=== PATIENT | female | born 1990 | race American Indian/Alaskan Native ===

== ENCOUNTER 2020-08-14 16:44 | Emergency (ER) | payer MEDICAID ==
[2020-08-14 16:56] VITALS: BP 149/86
[2020-08-14 19:07] LABS: Bacteria,Urine 2+ /HPF (Negative); Bilirubin,Urine NEG (Negative); Blood,Urine LG (Negative); Color,Urine Yellow (Yellow); Hyaline Casts,Urine 1 /LPF; Mucus,Urine 1+ /HPF
--- NOTE | 2020-08-14 19:08 | Ultrasound Report ---
OB Ultrasound HISTORY: slip and fall, , vaginal bleeding. TECHNIQUE: Grayscale and color imaging performed. COMPARISON: None FINDINGS: Transabdominal and endovaginal technique performed. Uterus measures 11.0 x 5.3 x 5.7 cm with an intrauterine gestational sac and pole present. [place] n-rump length is 7 mm which corresponds with an EGA of 6 weeks and 4 days. Heart rate is 115 bpm. Both ovaries appear normal. No significant pelvic free fluid. IMPRESSION: Single viable intrauterine gestation as above with nothing acute. Signer Name: Alejandro Marie MD Signed: 08/14/2020 7:03 PM Workstation Name: [id number]
--- NOTE | 2020-08-14 19:08 | Ultrasound Report ---
OB Ultrasound HISTORY: slip and fall, , vaginal bleeding. TECHNIQUE: Grayscale and color imaging performed. COMPARISON: None FINDINGS: Transabdominal and endovaginal technique performed. Uterus measures 11.0 x 5.3 x 5.7 cm with an intrauterine gestational sac and pole present. [place] n-rump length is 7 mm which corresponds with an EGA of 6 weeks and 4 days. Heart rate is 115 bpm. Both ovaries appear normal. No significant pelvic free fluid. IMPRESSION: Single viable intrauterine gestation as above with nothing acute. Signer Name: Alejandro Marie MD Signed: 08/14/2020 7:03 PM Workstation Name: [id number]
[2020-08-14 19:09] LABS: Basophils % (Auto) 0.4 % (0.0-1.8); Eosinophils % (Auto) 0.2 % (0.0-4.3); Hematocrit 39.8 % (30.3-42.9); Hemoglobin 13.6 gm/dl (10.1-14.3); Lymphocytes # (Auto) 2.5 K/mm3 (1.2-5.4); Lymphocytes % (Auto) 23.5 % (13.4-35.0); Mean Corpuscular HGB Conc 34 % (30-34); Mean Corpuscular Volume 93 fl (79-97); Monocytes # (Auto) 0.6 K/mm3 (0.0-0.8); Monocytes % (Auto) 5.9 % (0.0-7.3); Platelet Count 230 K/mm3 (140-440); Red Blood Count 4.27 M/mm3 (3.65-5.03); Red Cell Distribution Width 13.4 % (13.2-15.2)
[2020-08-14 19:27] LABS: Alanine Aminotransferase 12 units/L (7-56); Albumin 4.3 g/dL (3.9-5); Blood Urea Nitrogen 7 mg/dL (7-17); Calcium 9.5 mg/dL (8.4-10.2); Hemolysis Index 12
[2020-08-14 19:34] LABS: BUN/Creatinine Ratio 12
--- NOTE | 2020-08-14 20:22 | Emergency Department Report ---
ED General Adult HPI - General Chief complaint: Vaginal Bleeding Stated complaint: 7WKS PREG/BLEEDING/FALL Time Seen by Provider: 08/14/20 17:02 Source: patient Mode of arrival: Ambulatory Limitations: No Limitations - History of Present Illness Initial comments: Patient is a 29-year-old female presents emergency room with complaints of slip and fall that occurred just prior to arrival. She states that there was water on her kitchen floor and she accidentally slipped. She states since then she has noticed light vaginal bleeding whenever she wipes. She states that she landed on her bottom. She denies any abdominal pain, buttock pain, back pain, neck pain, upper extremity or lower extremity pain, loss of consciousness, hitting her head, vomiting, vision changes, numbness, weakness. She states that she is not having any pain anywhere. She states that she is currently 7 weeks . She states her MEDICAL RECORD TRANSCRIBER is [employer] [employer]. Last menstrual cycle June 27, 2020. No past medical history. No allergies medications. /P: 1/A: 2 (both abortions). - Related Data Allergies Allergy/AdvReac Type Severity Reaction Status Date / Time No Known Allergies Allergy Verified 08/14/20 16:52 ED Review of Systems ROS: Stated complaint: 7WKS PREG/BLEEDING/FALL Other details as noted in HPI Comment: All other systems reviewed and negative ED Past Medical Hx - Past Medical History Previous Medical History?: No - Surgical History Past Surgical History?: No - Social History Smoking Status: Never Smoker Substance Use Type: None ED Physical Exam - General Limitations: No Limitations General appearance: alert, in no apparent distress - Head Head exam: Present: atraumatic, normocephalic - Eye Eye exam: Present: normal appearance - ENT ENT exam: Present: mucous membranes moist - Respiratory Respiratory exam: Present: normal lung sounds bilaterally. Absent: respiratory distress, wheezes, rales, rhonchi, stridor, chest wall tenderness, accessory muscle use, decreased breath sounds, prolonged expiratory - Cardiovascular Cardiovascular Exam: Present: regular rate, normal rhythm, normal heart sounds. Absent: systolic murmur, diastolic murmur, rubs, gallop - GI/Abdominal GI/Abdominal exam: Present: soft, normal bowel sounds. Absent: distended, tenderness, guarding, rebound, rigid - Neurological Exam Neurological exam: Present: alert, oriented X3, CN II-XII intact, normal gait. Absent: motor sensory deficit - Psychiatric Psychiatric exam: Present: normal affect, normal mood - Skin Skin exam: Present: warm, dry, intact ED Course Vital Signs 08/14/20 16:53 Temperature 98.3 F Pulse Rate 117 H Respiratory 22 Rate Blood Pressure 149/86 O2 Sat by Pulse 99 Oximetry ED Medical Decision Making - Lab Data Result diagrams: 08/14/20 18:54 08/14/20 18:54 Lab Results 08/14/20 08/14/20 08/14/20 Range/Units 18:54 18:54 18:54 WBC 10.4 (4.5-11.0) K/mm3 RBC 4.27 (3.65-5.03) M/mm3 Hgb 13.6 (10.1-14.3) gm/dl Hct 39.8 (30.3-42.9) % MCV 93 (79-97) fl MCH 32 (28-32) pg MCHC 34 (30-34) % RDW 13.4 (13.2-15.2) % Plt Count 230 (140-440) K/mm3 Lymph % (Auto) 23.5 (13.4-35.0) % Floyd % (Auto) 5.9 (0.0-7.3) % Eos % (Auto) 0.2 (0.0-4.3) % Baso % (Auto) 0.4 (0.0-1.8) % Lymph # (Auto) 2.5 (1.2-5.4) K/mm3 [place] # (Auto) 0.6 (0.0-0.8) K/mm3 Eos # (Auto) 0.0 (0.0-0.4) K/mm3 Baso # (Auto) 0.0 (0.0-0.1) K/mm3 Seg Neutrophils % 70.0 (40.0-70.0) % Seg Neutrophils # 7.3 (1.8-7.7) K/mm3 Sodium 136 L (137-145) mmol/L Potassium 3.5 L (3.6-5.0) mmol/L Chloride 99.3 (98-107) mmol/L Carbon Dioxide 22 (22-30) mmol/L Anion Gap 18 mmol/L BUN 7 (7-17) mg/dL Creatinine 0.6 (0.6-1.2) mg/dL Estimated GFR > 60 ml/min BUN/Creatinine Ratio 12 % Glucose 97 (65-100) mg/dL Calcium 9.5 (8.4-10.2) mg/dL Total Bilirubin 0.30 (0.1-1.2) mg/dL AST 16 (5-40) units/L ALT 12 (7-56) units/L Alkaline Phosphatase 42 (35-129) units/L Total Protein 7.2 (6.3-8.2) g/dL Albumin 4.3 (3.9-5) g/dL Albumin/Globulin Ratio 1.5 % HCG, Quant 79037 H (0-4) mIU/mL Urine Color (Yellow) Urine Turbidity (Clear) Urine pH (5.0-7.0) Ur Specific [place] (1.003-1.030) Urine Protein (Negative) mg/dL Urine Glucose (UA) (Negative) mg/dL Urine Ketones (Negative) mg/dL Urine Blood (Negative) Urine Nitrite (Negative) Urine Bilirubin (Negative) Urine Urobilinogen (<2.0) mg/dL Ur Leukocyte Esterase (Negative) Urine WBC (Auto) (0.0-6.0) /HPF Urine RBC (Auto) (0.0-6.0) /HPF U Epithel Cells (Auto) (0-13.0) /HPF Urine Bacteria (Auto) (Negative) /HPF Hyaline Casts /LPF Urine Mucus /HPF Blood Type 08/14/20 08/14/20 Range/Units 18:54 Unknown WBC (4.5-11.0) K/mm3 RBC (3.65-5.03) M/mm3 Hgb (10.1-14.3) gm/dl Hct (30.3-42.9) % MCV (79-97) fl MCH (28-32) pg MCHC (30-34) % RDW (13.2-15.2) % Plt Count (140-440) K/mm3 Lymph % (Auto) (13.4-35.0) % Floyd % (Auto) (0.0-7.3) % Eos % (Auto) (0.0-4.3) % Baso % (Auto) (0.0-1.8) % Lymph # (Auto) (1.2-5.4) K/mm3 Floyd # (Auto) (0.0-0.8) K/mm3 Eos # (Auto) (0.0-0.4) K/mm3 Baso # (Auto) (0.0-0.1) K/mm3 Seg Neutrophils % (40.0-70.0) % Seg Neutrophils # (1.8-7.7) K/mm3 Sodium (137-145) mmol/L Potassium (3.6-5.0) mmol/L Chloride (98-107) mmol/L Carbon Dioxide (22-30) mmol/L Anion Gap mmol/L BUN (7-17) mg/dL Creatinine (0.6-1.2) mg/dL Estimated GFR ml/min BUN/Creatinine Ratio % Glucose (65-100) mg/dL Calcium (8.4-10.2) mg/dL Total Bilirubin (0.1-1.2) mg/dL AST (5-40) units/L ALT (7-56) units/L Alkaline Phosphatase (35-129) units/L Total Protein (6.3-8.2) g/dL Albumin (3.9-5) g/dL Albumin/Globulin Ratio % HCG, Quant (0-4) mIU/mL Urine Color Yellow (Yellow) Urine Turbidity Cloudy (Clear) Urine pH 6.0 (5.0-7.0) Ur Specific [place] 1.025 (1.003-1.030) Urine Protein 100 mg/dl (Negative) mg/dL Urine Glucose (UA) Neg (Negative) mg/dL Urine Ketones Neg (Negative) mg/dL Urine Blood Lg (Negative) Urine Nitrite Neg (Negative) Urine Bilirubin Neg (Negative) Urine Urobilinogen 2.0 (<2.0) mg/dL Ur Leukocyte Esterase Neg (Negative) Urine WBC (Auto) 7.0 H (0.0-6.0) /HPF Urine RBC (Auto) 3.0 (0.0-6.0) /HPF U Epithel Cells (Auto) 57.0 H (0-13.0) /HPF Urine Bacteria (Auto) 2+ (Negative) /HPF Hyaline Casts 1 /LPF Urine Mucus 1+ /HPF Blood Type A POSITIVE - Radiology Data Radiology results: report reviewed Ordering Physician: PETRONA CHANG Date of Service: 08/14/20 Procedure(s): US OB transvaginal Accession Number(s): [id number] cc: PETRONA CHANG OB Ultrasound HISTORY: slip and fall, , vaginal bleeding. TECHNIQUE: Grayscale and color imaging performed. COMPARISON: None FINDINGS: Transabdominal and endovaginal technique performed. Uterus measures 11.0 x 5.3 x 5.7 cm with an intrauterine gestational sac and pole present. [place]-rump length is 7 mm which corresponds with an EGA of 6 weeks and 4 days. Heart rate is 115 bpm. Both ovaries appear normal. No significant pelvic free fluid. IMPRESSION: Single viable intrauterine gestation as above with nothing acute. Signer Name: Alejandro Marie MD Signed: 08/14/2020 7:03 PM Workstation Name: [id number] Transcribed By: ION Dictated By: Alejandro Marie MD Electronically Authenticated By: Alejandro Marie MD Signed Date/Time: 08/14/201902 DD/ 01 TD/TT: - Medical Decision Making Patient is a 29-year-old female presents emergency room with complaints of slip and fall that occurred just prior to arrival. She states that there was water on her kitchen floor and she accidentally slipped. She states since then she has noticed light vaginal bleeding whenever she wipes. She states that she landed on her bottom. She denies any abdominal pain, buttock pain, back pain, neck pain, upper extremity or lower extremity pain, loss of consciousness, hitting her head, vomiting, vision changes, numbness, weakness. She states that she is not having any pain anywhere. She states that she is currently 7 weeks . She states her MEDICAL RECORD TRANSCRIBER is [employer]. Last menstrual cycle June 27, 2020. No past medical history. No allergies medications. /P: 1/A: 2 (both abortions). initial vitals with mild tachycardia, patient was tearful initially and she was concerned about her baby given the fall, she is not really having any pain but she just wants to make sure that the baby is okay, repeat heart rate in exam room is 86 bpm, otherwise vitals are stable. Labs are stable. UA shows many epithelial cells, this is likely due to contamination, patient is not having uri nary symptoms, do not suspect UTI. OB ultrasound IMPRESSION: Single viable intrauterine gestation as above with nothing acute. advised pt Please increase your water intake. Please continue taking vitamin [id number]. May take Tylenol for any discomfort. Please practice pelvic rest. Follow-up with MEDICAL RECORD TRANSCRIBER in the next 2 to 3 days. It is very important that you follow-up. You will need to have a repeat hCG quant in 2 days. Return to emergency room for any worsening symptoms. Critical care attestation.: If time is entered above; I have spent that time in minutes in the direct care of this critically ill patient, excluding procedure time. ED Disposition Clinical Impression: Vaginal bleeding, Threatened Fall Qualifiers: Encounter type: initial encounter Qualified Code(s): W19.XXXA - Unspecified fall, initial encounter Disposition: TO HOME OR SELFCARE Is pt being admited?: No Does the pt Need Aspirin: No Condition: Stable Instructions: Threatened Miscarriage, Vaginal Bleeding During , First Trimester, [id number] Additional Instructions: Please increase your water intake. Please continue taking vitamin [id number]. May take Tylenol for any discomfort. Please practice pelvic rest. Follow-up with MEDICAL RECORD TRANSCRIBER in the next 2 to 3 days. It is very important that you follow-up. You will need to have a repeat hCG quant in 2 days. Return to emergency room for any worsening symptoms. Referrals: PRIMARY CARE, [Primary Care Provider] - 2-3 Days [facility] [Provider Group] - 2-3 Days Time of Disposition: 20:21 Print Language: [place]
== END 2020-08-14 20:30 | disposition home or self-care (01) ==
LOC: ED 16:44
DX: O20.0 Threatened abortion (principal); Z3A.01 Less than 8 weeks gestation of pregnancy; W01.0XXA Fall on same level from slipping, tripping and stumbling without subsequent striking against object, initial encounter; Y93.89 Activity, other specified; Y92.89 Other specified places as the place of occurrence of the external cause; Y99.8 Other external cause status
CPT/HCPCS: 36415; 76801; 76817; 80053; 81001; 84702; 85025; 86900; 86901

== ENCOUNTER 2020-11-24 13:10 | Outpatient (CLI) | payer MEDICAID ==
[2020-11-24] MEDS ORDERED: LACTATED RINGERS 1,000 ML IV ONE (14:05)
[2020-11-24 14:15] LABS: Bilirubin,Urine NEG (Negative); Blood,Urine NEG (Negative); Color,Urine Yellow (Yellow); Mucus,Urine FEW /HPF; Protein,Urine <15 mg/dL mg/dL (Negative); Urobilinogen,Urine < 2.0 mg/dL (<2.0)
[2020-11-24 15:40] VITALS: BP 129/76
== END 2020-11-24 15:55 | disposition home or self-care (01) ==
LOC: TRG 13:10 → APU 13:11 → TRG 15:55
PROVIDERS: ATTEND Obstetrics & Gynecology
DX: O26.892 Other specified pregnancy related conditions, second trimester (principal); M54.5 Low back pain; R10.9 Unspecified abdominal pain; Z3A.21 21 weeks gestation of pregnancy
CPT/HCPCS: 81001

== ENCOUNTER 2021-03-02 09:59 | Outpatient (CLI) | payer MEDICAID ==
[2021-03-02] MEDS ORDERED: ONDANSETRON 4 MG/2 ML INJ IV NR (10:29)
[2021-03-02] MEDS ORDERED: LACTATED RINGERS 500 ML IV SCH (10:30)
[2021-03-02 11:48] VITALS: BP 123/77
[2021-03-02 12:12] LABS: Bilirubin,Urine NEG (Negative); Blood,Urine NEG (Negative); Color,Urine Yellow (Yellow); Urobilinogen,Urine < 2.0 mg/dL (<2.0)
[2021-03-02 12:14] LABS: RBC,Urine < 1.0 /HPF (0.0-6.0); WBC,Urine < 1.0 /HPF (0.0-6.0)
[2021-03-02 12:20] LABS: Mucus,Urine FEW /HPF
== END 2021-03-02 12:05 | disposition home or self-care (01) ==
LOC: TRG 09:59 → APU 10:02 → TRG 12:05
PROVIDERS: ATTEND Obstetrics & Gynecology
DX: O21.2 Late vomiting of pregnancy (principal); O26.893 Other specified pregnancy related conditions, third trimester; R10.9 Unspecified abdominal pain; Z3A.35 35 weeks gestation of pregnancy
CPT/HCPCS: 36415; 59025; 81001; 82731; 96365; 96366; J2405; J7120; 96360

== ENCOUNTER 2021-03-14 00:48 | Outpatient (CLI) | payer MEDICAID ==
[2021-03-14 01:26] VITALS: BP 136/76
[2021-03-14] MEDS ORDERED: LACTATED RINGERS 1,000 ML IV ONE (01:46)
[2021-03-14 01:55] LABS: Bacteria,Urine 1+ /HPF (Negative); Bilirubin,Urine NEG (Negative); Blood,Urine NEG (Negative); Color,Urine Yellow (Yellow); Mucus,Urine 2+ /HPF; Urobilinogen,Urine < 2.0 mg/dL (<2.0)
[2021-03-14] MEDS ORDERED: ONDANSETRON 4 MG/2 ML INJ IV ONE (02:47)
[2021-03-14] MEDS ORDERED: hydrOXYzine HCL 100 MG/2 ML INJ IM ONE (02:47)
== END 2021-03-14 07:10 | disposition home or self-care (01) ==
LOC: TRG 00:48 → APU 00:55 → TRG 07:10
PROVIDERS: ATTEND Obstetrics & Gynecology
DX: O21.2 Late vomiting of pregnancy (principal); R10.9 Unspecified abdominal pain; Z3A.37 37 weeks gestation of pregnancy
CPT/HCPCS: 59025; 81001; 96365; 96372; J2405; J3410; J7120; 96360

== ENCOUNTER 2021-03-15 03:12 | Outpatient (CLI) | payer MEDICAID ==
[2021-03-15 04:16] VITALS: BP 116/73
[2021-03-15] MEDS ORDERED: ONDANSETRON 4 MG/2 ML INJ IM ONE (04:20)
== END 2021-03-15 04:40 | disposition home or self-care (01) ==
LOC: TRG 03:12 → APU 03:14 → TRG 04:40
PROVIDERS: ATTEND Obstetrics & Gynecology
DX: O46.93 Antepartum hemorrhage, unspecified, third trimester (principal); O26.893 Other specified pregnancy related conditions, third trimester; R10.2 Pelvic and perineal pain; Z3A.37 37 weeks gestation of pregnancy
CPT/HCPCS: 59025; 96372; J2405

== ENCOUNTER 2021-03-23 08:52 | Inpatient (IN) | payer MEDICAID ==
[2021-03-23] MEDS ORDERED: ceFAZolin/Water 2 GM/20 ML 2 GM/20 ML SYRINGE IV SCH (09:30)
[2021-03-23] MEDS ORDERED: METOCLOPRAMIDE 10 MG/2 ML INJ IV SCH (09:30)
[2021-03-23] MEDS ORDERED: BICITRA ORAL LIQD 30ML PO SCH (09:30)
[2021-03-23] MEDS ORDERED: FAMOTIDINE 20 MG/2 ML INJ IV SCH (09:30)
--- NOTE | 2021-03-23 09:38 | History and Physical Report ---
History of Present Illness Date of examination: 03/23/21 Date of admission: 03/23/21 08:52 Chief complaint: scheduled section History of present illness: Pt is a 30 year old -[place] female ABEL 04/04/21 at 38w2d who presents for scheduled section secondary to chronic hypertension on no meds and prior section. She denies vaginal bleeding and leakage of fluid. She does report irregular contractions. She has had care at [facility] with comanagement by [facility] since 14 weeks complicated by chronic hypertension, morbid obesity, nausea and vomiting, gallbladder sludge, GERD, genital herpes, and silent alpha thalassemia carrier status. She is GBS positive. Past History Past Medical History: hypertension Past Surgical History: appendectomy, section ROVING HAND History: herpes Family/Genetic History: diabetes, hypertension Social history: no significant social history - Obstetrical History Expected Date of Delivery: 04/04/21 Actual Gestation: 38 Week(s) 2 Day(s) : 4 Para: 1 Hx # Term Pregnancies: 1 Number of Pregnancies: 0 Spontaneous Abortions: 0 Induced : 2 Number of Living Children: 1 Medications and Allergies Allergies Allergy/AdvReac Type Severity Reaction Status Date / Time No Known Allergies Allergy Verified 08/14/20 16:52 Home Medications Medication Instructions Recorded Confirmed Last Taken Type Omeprazole 40 mg PO DAILY #30 capsule. 03/22/21 Unknown Rx Ondansetron [Zofran ODT TAB] 8 mg PO Q12HR PRN #20 tab.nia 03/22/21 Unknown Rx Active Meds: Active Medications Citric Acid/Sodium Citrate (Bicitra Oral Liqd 30ml) 30 ml PO PREOP [facility]I Stop: 03/23/21 17:00 Famotidine (Famotidine 20 Mg/2 Ml Inj) 20 mg IV PREOP [facility]I Stop: 03/23/21 17:00 Lactated Ringer's (Lactated Ringers) 1,000 mls @ 2,250 mls/hr IV PREOP [facility]I Stop: 03/24/21 09:57 Oxytocin/Sodium Chloride (Pitocin/Ns 30 Unit/500ml) 30 units in 500 mls @ 0 mls/hr IV TITR CHI; Protocol Cefazolin Sodium (Ancef/Sterile Water 2 Gm/20 Ml) 2 gm in 20 mls @ 80 mls/hr IV PREOP CHI; Protocol Stop: 03/23/21 17:00 Metoclopramide HCl (Metoclopramide 10 Mg/2 Ml Inj) 10 mg IV PREOP CHI Stop: 03/23/21 17:00 Misoprostol (Misoprostol 200 Mcg Tab) 800 mcg FL ONCE PRN PRN Reason: Bleeding Review of Systems All systems: negative - Physical Exam Breasts: Positive: deferred Abdomen: Positive: soft (obese, gravid ) Uterus: Positive: enlarged (gravid ) Extremities: Positive: edema (trace ) - Obstetrical FHR: auscultation normal Uterine Contraction Monitor Mode: External Uterine Contraction Pattern: Irregular Uterine Tone Measurement Phase: Resting Results All other labs normal. Assessment and Plan A: IUP at 38w2d Chronic hypertension, no meds Previous x 1 Morbid obesity Nausea and vomiting Gallbladder sludge GERD Genital herpes Silent alpha thalassemia carrier GBS positive P: Proceed with repeat section and other indicated procedures.
[2021-03-23] MEDS ORDERED: OXYTOCIN DRIP 30 UNITS/500 ML BAG IV SCH ×2 (10:00→16:00)
[2021-03-23] MEDS ORDERED: miSOPROStol 200 MCG TAB PR PRN (10:00)
[2021-03-23] MEDS: LACTATED RINGERS 1,000 ML IV SCH ×3 (10:00→11:38)
[2021-03-23] MEDS ORDERED: BUPIVACAINE/PF (0.5%) 5 MG/1 ML 30 ML VIAL INFILTRATI ONE (10:43)
[2021-03-23] MEDS ORDERED: dexAMETHasone 20 MG/5 ML VIAL ONE (10:43)
[2021-03-23] MEDS ORDERED: KETOROLAC 30 MG/1 ML INJ ONE (10:51)
[2021-03-23] MEDS ORDERED: PROMETHAZINE 25 MG TAB PO PRN (11:00)
[2021-03-23] MEDS ORDERED: NALOXONE 0.4 MG/1 ML INJ IV PRN ×2 (11:00→16:00)
[2021-03-23] MEDS ORDERED: NalbUPHINE 10 MG/1 ML INJ IV PRN (11:00)
[2021-03-23] MEDS ORDERED: HYDROmorphone 1 MG/1 ML INJ IV PRN (11:00)
[2021-03-23] MEDS ORDERED: ONDANSETRON 4 MG/2 ML INJ IV PRN (11:00)
[2021-03-23] MEDS ORDERED: PROMETHAZINE 25 MG RECT SUPP PR PRN (11:00)
[2021-03-23] MEDS ORDERED: diphenhydrAMINE 50 MG/ML VIAL IV PRN (11:00)
[2021-03-23] MEDS ORDERED: PHENYLEPHRINE/NS 1,000 MCG/10 ML SYRINGE (OR USE) IV ONE (11:00)
[2021-03-23 11:13] LABS: Basophils # (Auto) 0.1 K/mm3 (0.0-0.1); Basophils % (Auto) 0.8 % (0.0-1.8); Eosinophils % (Auto) 0.6 % (0.0-4.3); Hematocrit 35.7 % (30.3-42.9); Hemoglobin 11.7 gm/dl (10.1-14.3); Lymphocytes # (Auto) 1.7 K/mm3 (1.2-5.4); Lymphocytes % (Auto) 19.5 % (13.4-35.0); Mean Corpuscular HGB Conc 33 % (30-34); Mean Corpuscular Volume 85 fl (79-97); Monocytes # (Auto) 0.6 K/mm3 (0.0-0.8); Monocytes % (Auto) 6.6 % (0.0-7.3); Platelet Count 206 K/mm3 (140-440); Red Cell Distribution Width 15.9 % (13.2-15.2)
--- NOTE | 2021-03-23 12:23 | Anesthesia Day of Surgery ---
Anesthesia Day of Surgery - Day of Surgery Patient Examined: Yes Patient H&P Reviewed: Yes Patient is NPO: Yes Beta Blockers: No Cardiac Clearance: No Pulmonary Clearance: No Isaak's Test: N/A
--- NOTE | 2021-03-23 12:24 | Progress Note ---
Spinal Anesthesia Block - Spinal Anesthesia Block Start Time: 11:45 Stop Time: 11:54 Performed by:: [facility] Procedure: Spinal anesthesia block is being performed for [C/S]. H&P, labs have been reviewed. Patient's questions and concerns have been answered. Informed consent has been performed. Timeout has was performed. Patient in sitting position on side of bed. Sterile prep and drape was performed. 3 mL 1% lid ocaine skin wheal at L [3]-L [4]. Needle introducer advanced. 25-gauge spinal needle advanced, [+] CSF [-] blood. [Marcaine 10mg and Precedex 5mcg] Spinal dose was given. All needles removed. Patient tolerated procedure well.
--- NOTE | 2021-03-23 12:24 | Anesthesia Consultation ---
Anesthesia Consult and Med Hx Date of service: 03/23/21 - Airway Anesthetic Teeth Evaluation: Good ROM Head & Neck: Adequate Mental/Hyoid Distance: Adequate Mallampati Class: Class III Intubation Access Assessment: Probably Good - Pulmonary Exam CTA: Yes - Cardiac Exam Cardiac Exam: RRR - Pre-Operative Health Status ASA Pre-Surgery Classification: ASA2 Proposed Anesthetic Plan: Spinal Nerve Block: TAP - Pulmonary Hx Smoking: No Hx Asthma: No COPD: No Hx Pneumonia: No Hx Sleep Apnea: No - Cardiovascular System Hx Hypertension: No Hx Heart Attack/AMI: No Hx Angina: No - Central Nervous System Hx Seizures: No Hx Psychiatric Problems: No - Gastrointestinal Hx Gastroesophageal Reflux Disease: No - Endocrine Hx Renal Disease: No Hx End Stage Renal Disease: No Hx Liver Disease: No Hx Insulin Dependent Diabetes: No Hx Non-Insulin Dependent Diabetes: No Hx Hypothyroidism: No Hx Hyperthyroidism: No - Hematic Hx Anemia: No Hx Sickle Cell Disease: No - Other Systems Hx Alcohol Use: No Hx Obesity: Yes
[2021-03-23] MEDS ORDERED: OXYTOCIN 10 UNIT/1 ML INJ ONE (12:34)
--- NOTE | 2021-03-23 13:13 | Procedure Note ---
OB Delivery Note - Delivery Date of Delivery: 03/23/21 Surgeon: RONALD ARZATE Estimated blood loss: other (1459 mL) - Section Preop diagnosis: repeat , other (Chronic HTN ) Postop diagnosis: same section procedure: section, repeat low transverse Disposition: PACU Complications: intra-op hemorrhage Narrative: Please see operative report - Infant A at 1 minute: 9 at 5 minutes: 9 Gender: Male (3300 mL (7lb 4oz) @ 1229 pm)
--- NOTE | 2021-03-23 13:19 | Operative Report ---
Operative Report Operative Report: Date of procedure: March 23, 2021 Preoperative diagnosis: 1) IUP at 38w2d 2) Chronic HTN 3) Previous 4) Morbid Obesity Postoperative diagnosis: Same 5) Intraoperative Hemorrhage Procedure: Repeat low transverse section Surgeon: Jaimie Nam M.D. Anesthesia: Regional Findings: 1) Viable male , Apgars 9 and 9, weight 3300 g, (7 lb 4 oz) in cephalic presentation. Nuchal cord x 1 2) Normal-appearing uterus ovaries and tubes 3) Large vessels coursing through lower uterine segment Estimated blood loss: 1459 mL IV fluids: 1900 mL Urine output: 100 mL, clear at the end of the procedure Drains: Rivera to gravity Specimens: None Complications:None. Counts correct x 3 Disposition: Stable to PACU Indication for procedure: Pt is a 30 year old at 38w2d with a h/o chronic hypertension and previous who presents for repeat section. Operation in detail: After the risks, benefits, alternatives and complications were explained to the patient she gave informed consent for the procedure. She was subsequently taken to the operating room where regional anesthesia was noted to be adequate. She was placed in the dorsal supine position with leftward tilt and prepped and draped in a normal sterile fashion. heart tones were noted prior to incision. A timeout was performed. A Pfannenstiel skin incision was made with the knife and carried down to the layer of the fascia with the Bovie. The fascia was incised in the midline and the fascial incision was extended bilaterally with the Bovie. The fascial incision was then stretched. The rectus muscles were then in the midline and partially transected for adequate visualization. The peritoneum was then entered bluntly. The peritoneal incision was extended with good visualization of the bladder. The peritoneal incision was then stretched. An Ari retractor was placed. The bladder blade was then placed. The vesicouterine peritoneum was grasped with smooth pick ups and incised with Metzenbaum scissors. A bladder flap was then created digitally and the bladder blade was replaced. A transverse incision was made in the lower uterine segment with a knife and extended bilaterally with the bandage scissors. Amniotomy was performed with egress of clear fluid. head delivered with ease, followed by shoulders and body. bulb suctioned at delivery. Cord clamped and cut. handed to NICU staff in attendance. Cord blood was collected. The placenta was then delivered manually. The uterus was then exteriorized and cleared of all clots and debris. Large vessels were noted to be running in the lower uterine segment. The hysterotomy was then reapproximated with 0 Moncryl in a running locked fashion. A second layer of the same suture was used in imbricating fashion. The hysterotomy was inspected and hemostasis was noted. The gutters were irrigated and cleared of all clots and debris. The uterus was placed back into the peritoneal cavity. The hysterotomy was again inspected and noted to be hemostatic. Surgicel was placed over the hysterotomy. The Ari retractor was removed. The peritoneum was reapproximated with 0 Monocryl in a running fashion incorporating the rectus muscles. Surgicel was placed over the rectus muscles. The fascia was reapproximated with 0 Vicryl in a running fashion. The skin was reapproximated with 3-0 Monocryl in a subcuticular fashion. The incision was then covered with steri strips and a pressure dressing. The procedure was then ended. The patient tolerated the procedure well and was taken to the PACU in stable condition. All instrument, lap, and needle counts were correct 3.
[2021-03-23] MEDS ORDERED: SIMETHICONE 80 MG CHEW TAB PO PRN (16:00)
[2021-03-23] MEDS ORDERED: ACETAMINOPHEN 325 MG TAB PO PRN (16:00)
[2021-03-23] MEDS ORDERED: WITCH HAZEL/ GLYCERIN PAD TP PRN (16:00)
[2021-03-23] MEDS ORDERED: LANOLIN/ZINC/DIMETHICONE (LANSINOH) 7 GM TP PRN (16:00)
[2021-03-23] MEDS ORDERED: D5W/LACTATED RINGERS 1,000 ML IV SCH (16:00)
[2021-03-23] MEDS ORDERED: MORPHINE 4 MG/1 ML INJ IV PRN (16:00)
[2021-03-23] MEDS ORDERED: MORPHINE 2 MG/1 ML INJ IV PRN (16:00)
[2021-03-23] MEDS ORDERED: IBUPROFEN 800 MG TAB PO PRN (16:00)
[2021-03-23] MEDS: KETOROLAC 30 MG/1 ML INJ IV SCH ×2 (16:20→22:36)
[2021-03-23] MEDS: ceFAZolin/NS 1 GM/50 ML 1 GM/50 ML BAG IV SCH (17:57)
[2021-03-23] MEDS: oxyCODONE /ACETAMINOPHEN 5-325MG TAB PO PRN (21:12)
[2021-03-23] MEDS ORDERED: MAGNESIUM HYDROXIDE (MOM) ORAL LIQD UDC PO PRN (22:00)
[2021-03-24] MEDS: ceFAZolin/NS 1 GM/50 ML 1 GM/50 ML BAG IV SCH (02:36)
[2021-03-24] MEDS: KETOROLAC 30 MG/1 ML INJ IV SCH ×2 (04:35→09:15)
[2021-03-24 05:18] LABS: Hematocrit 31.5 % (30.3-42.9); Hemoglobin 10.2 gm/dl (10.1-14.3)
[2021-03-24] MEDS: oxyCODONE /ACETAMINOPHEN 5-325MG TAB PO PRN ×3 (06:32→21:08)
--- NOTE | 2021-03-24 09:05 | Progress Note ---
Assessment and Plan - Patient Problems (1) Status post repeat low transverse section Current Visit: Yes Status: Acute Plan to address problem: Continue routine PP orders Keep dressing clean and dry, remove on POD#2 Anticipate d/c home in 24 -48hrs if stable (2) Chronic hypertension affecting Current Visit: No Status: Acute Plan to address problem: B/Ps stable Continue to monitor B/Ps (3) Anemia Current Visit: Yes Status: Acute Qualifiers: Anemia type: other cause Other causes of anemia: acute posthemorrhagic Qualified Code(s): D62 - Acute posthemorrhagic anemia Plan to address problem: Asymptomatic Increase iron rich foods into diet Subjective - Subjective Date of service: 03/24/21 Principal diagnosis: S/P repeat C/S; POD#1; CHTN Interval history: Pt is a 30 year old -[place] female ABEL [birth year] at 38w2d who presents for scheduled section secondary to chronic hypertension on no meds and prior section. She denies vaginal bleeding and leakage of fluid. She does report irregular contractions. 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 She is GBS positive. Viable male infant delivered via scheduled repeat C/S. Patient reports: appetite normal, voiding normally, pain well controlled (with medications), flatus, ambulating normally, no bowel movement [place]: doing well, bottle feeding (and ) Objective - Vital Signs Latest vital signs: Vital Signs Temp Pulse Resp BP BP Pulse Ox Pulse Ox 03/24/21 04:58 97.6 F 81 20 128/76 99 03/24/21 01:07 97.9 F 79 20 119/82 94 03/23/21 20:51 98.0 F 79 20 127/81 98 03/23/21 19:45 100 03/23/21 18:05 100 03/23/21 15:00 97.9 F 73 18 125/85 100 03/23/21 14:20 82 14 125/84 100 03/23/21 14:05 77 15 129/83 100 03/23/21 13:50 81 14 126/86 100 03/23/21 13:35 87 12 130/86 100 03/23/21 13:30 94 H 19 119/74 98 03/23/21 13:25 104 H 22 126/87 96 03/23/21 13:20 98 F 111 H 20 106/88 98 03/23/21 11:36 126 H 100 03/23/21 11:31 105 H 100 03/23/21 11:26 99 H 100 03/23/21 11:21 94 H 100 03/23/21 11:16 108 H 100 03/23/21 11:14 102 H 142/83 03/23/21 11:11 103 H 100 03/23/21 11:06 92 H 100 03/23/21 11:03 98.4 F 98 H 18 126/81 100 03/23/21 11:01 103 H 100 03/23/21 10:56 101 H 100 03/23/21 10:51 99 H 100 03/23/21 10:50 100 03/23/21 10:46 98 H 100 03/23/21 10:45 96 H 126/81 03/23/21 10:41 103 H 100 03/23/21 10:36 103 H 100 03/23/21 10:31 98 H 100 03/23/21 10:26 94 H 99 03/23/21 10:21 105 H 100 03/23/21 10:16 97 H 99 03/23/21 10:11 127 H 100 03/23/21 10:06 110 H 100 03/23/21 10:01 97 H 100 03/23/21 09:56 97 H 99 03/23/21 09:51 95 H 97 03/23/21 09:46 123 H 100 03/23/21 09:41 96 H 99 03/23/21 09:36 94 H 132/77 100 Intake and Output 03/23/21 03/24/21 03/24/21 23:59 07:59 15:59 Intake Total 1010 240 Output Total 200 900 Balance 810 -660 Intake: IV 50 ANCEF/NS 1 GM/50 ML 1 gm 50 In 50 ml @ 100 mls/hr IV Q8H COUNTS INCLUDE 234 BEDS AT THE [facility] Rx#:[id number] Oral 480 240 Intake, Free Water 480 Output: Urine 200 900 Indwelling Catheter 200 800 Void 100 Other: Total, Intake Amount 120 120 Total, Output Amount 200 900 # Voids Void 1 - Exam Breasts: Present: normal Cardiovascular: Present: Regular rate Lungs: Present: Normal air movement Abdomen: Present: soft, tenderness Uterus: Present: firm, fundal height below umbilicus (U-2) Extremities: Present: normal Deep Tendon Reflex Grade: Normal +2 Incision: Present: dressed (no shadow drainage or bleeding noted) - Labs Labs: Abnormal lab results 03/23/21 Range/Units 10:25 RDW 15.9 H (13.2-15.2) % Seg Neutrophils % 72.5 H (40.0-70.0) %
--- NOTE | 2021-03-24 12:16 | Post Anesthesia Evaluation ---
- Post Anesthesia Evaluation Patient Participated: Yes Airway Patent: Yes Stable Respiratory Function: Yes Nausea/Vomiting: No Temp > 96.8F: Yes Pain Manageable: Yes Adequeate Hydration: Yes Anesthesia Complications: No Block Receding Appropriately: Yes Patient on Ventilator: No
[2021-03-24] MEDS ORDERED: TETANUS,DIPH,PERTUSS(ACELL) VACCINE 0.5 ML SYRINGE IM ONE (13:20)
[2021-03-24] MEDS ORDERED: MEASLES, MUMPS & RUBELLA 12,500 UNIT/0.5 ML VACCINE SUB-Q ONE (13:20)
[2021-03-25] MEDS: oxyCODONE /ACETAMINOPHEN 5-325MG TAB PO PRN ×2 (05:09→12:07)
--- NOTE | 2021-03-25 07:25 | Progress Note ---
Assessment and Plan A: POD#2 s/p repeat section at term Morbid Obesity Chronic HTN P: Routine postop care Discharge later today with follow up in 1 wk for BP check Subjective - Subjective Date of service: 03/25/21 Principal diagnosis: S/P repeat C/S; POD#2; CHTN Interval history: No overnight events. Pt would like to go home if possible. Patient reports: appetite normal, voiding normally, pain well controlled, flatus, bowel movement, ambulating normally [place]: doing well Objective - Vital Signs Latest vital signs: Vital Signs Temp Pulse Resp BP Pulse Ox Pulse Ox 03/25/21 06:09 18 03/25/21 05:09 18 03/25/21 00:01 97.2 F L 88 18 128/90 98 03/24/21 22:08 18 03/24/21 21:08 18 03/24/21 20:00 100 03/24/21 16:33 97.7 F 104 H 16 118/86 96 03/24/21 11:48 97.5 F L 97 H 20 119/80 99 03/24/21 08:00 100 Intake and Output 03/24/21 03/25/21 03/25/21 22:59 06:59 14:59 Intake Total 200 Balance 200 Intake: Oral 200 Other: Total, Intake Amount 200 # Voids Void 1 - Exam Breasts: Present: deferred Abdomen: Present: soft (obese ) Uterus: Present: fundal height at umbilicus Extremities: Present: edema (trace ) Incision: Present: dressed
--- NOTE | 2021-03-25 07:28 | Discharge Summary ---
Providers - Providers Date of Admission: 03/23/21 08:52 Date of discharge: 03/25/21 Attending physician: RONALD ARZATE 03/23/21 15:39 Consult to [employer] [CONS] Routine Reason For Exam: Primary care physician: RONALD ARZATE Hospitalization Reason for admission: section Delivery: Procedure: section, repeat low transverse Procedure details: Please see operative report Episiotomy: none Laceration: none Incision: intact Other procedures: none complications: none Discharge diagnosis: IUP at term delivered baby: male Hospital course: This patient was admitted for scheduled section. She tolerated repeat section well. Her postoperative course was uncomplicated and she met discharge criteria on postoperative day #2. She will follow-up in the office in 1 week for blood pressure check. Condition at discharge: Stable Disposition: 01 HOME / SELF CARE / HOMELESS - Discharge Diagnoses (1) Status post repeat low transverse section Status: Acute (2) Chronic hypertension affecting Status: Acute (3) GERD (gastroesophageal reflux disease) Status: Acute Qualifiers: Esophagitis presence: esophagitis presence not specified Qualified Code(s): K21.9 - Gastro-esophageal reflux disease without esophagitis (4) Morbid obesity Status: Acute Plan - Discharge Medications Prescriptions: Ibuprofen [Motrin] 800 mg PO Q8HR PRN #30 tablet PRN Reason: Pain, Moderate (4-6) oxyCODONE /ACETAMINOPHEN [Percocet 5/325] 1 tab PO Q6HR PRN #30 tablet PRN Reason: Pain - Provider Discharge Summary Activity: routine, no sex for 6 weeks, no heavy lifting 4 weeks, no strenuous exercise Diet: routine Instructions: routine Additional instructions: [] Smoking cessation referral if applicable(refer to patient education folder for contact #) [] Refer to [facility] Booklet Call your doctor immediately for: * Fever > 100.5 * Heavy vaginal bleeding ( >1 pad per hour) * Severe persistent headache * Shortness of breath * Reddened, hot, painful area to leg or breast * Drainage or odor from incision. * Keep incision clean and dry at all times and follow doctor's instructions regarding bathing/showering Please schedule your son's circumcision before he is one month old - Follow up plan Follow up: RONALD ARZATE MD [Primary Care Provider] - 7 Days
[2021-03-25 09:48] VITALS: BP 130/84
[2021-03-25] MEDS ORDERED: diphenhydrAMINE 25 MG CAP PO PRN (12:59)
== END 2021-03-25 14:30 | disposition home or self-care (01) | DRG 765 ==
LOC: APU 08:52 → OB 14:50
PROVIDERS: ADMIT Obstetrics & Gynecology; ATTEND Obstetrics & Gynecology
PROC: 10D00Z1 Extraction of Products of Conception, Low, Open Approach (ICD-10-PCS; principal; 2021-03-23)
DX: O10.92 Unspecified pre-existing hypertension complicating childbirth (principal); D62 Acute posthemorrhagic anemia; O72.1 Other immediate postpartum hemorrhage; Z37.0 Single live birth; Z3A.38 38 weeks gestation of pregnancy; O99.214 Obesity complicating childbirth; E66.01 Morbid (severe) obesity due to excess calories; O99.62 Diseases of the digestive system complicating childbirth; O99.824 Streptococcus B carrier state complicating childbirth; K21.9 Gastro-esophageal reflux disease without esophagitis; O69.81X0 Labor and delivery complicated by cord around neck, without compression, not applicable or unspecified; O34.211 Maternal care for low transverse scar from previous cesarean delivery; Z20.822 Contact with and (suspected) exposure to COVID-19; O90.81 Anemia of the puerperium
CPT/HCPCS: 36415; 59025; 76700; 80053; 81001; 82150; 83690; 84132; 85014; 85018; 85025; 86592; 86850; 86900; 86901; 87086; 96360; 99211; G0378; C9113; G0463; J0690; J0696; J1100; J1885; J2370; J2405; J2590; J2765; J3105; J3480; J3490; J7120; J7121; U0003

== ENCOUNTER 2022-01-21 11:08 | Emergency (ER) | payer MEDICAID ==
[2022-01-21 11:54] VITALS: BP 148/74
== END 2022-01-22 11:22 | disposition left against medical advice (07) ==
LOC: ED 11:08
DX: R11.10 Vomiting, unspecified (principal); Z53.21 Procedure and treatment not carried out due to patient leaving prior to being seen by health care provider

== ENCOUNTER 2022-01-22 06:01 | Emergency (ER) | payer MEDICAID ==
[2022-01-22 10:52] LABS: Basophils # (Auto) 0.1 K/mm3 (0.0-0.1); Basophils % (Auto) 0.6 % (0.0-1.8); Eosinophils % (Auto) 0.2 % (0.0-4.3); Hematocrit 46.5 % (30.3-42.9); Hemoglobin 15.4 gm/dl (10.1-14.3); Lymphocytes # (Auto) 2.5 K/mm3 (1.2-5.4); Lymphocytes % (Auto) 26.7 % (13.4-35.0); Mean Corpuscular HGB Conc 33 % (30-34); Mean Corpuscular Volume 90 fl (79-97); Monocytes # (Auto) 0.6 K/mm3 (0.0-0.8); Platelet Count 319 K/mm3 (140-440); Red Blood Count 5.16 M/mm3 (3.65-5.03); Red Cell Distribution Width 13.5 % (13.2-15.2)
[2022-01-22] MEDS ORDERED: SODIUM CHLORIDE 0.9% 1000 ML 1,000 ML IV ONE ×2 (10:56)
[2022-01-22] MEDS ORDERED: ONDANSETRON 4 MG/2 ML INJ IV ONE (10:59)
[2022-01-22] MEDS ORDERED: FAMOTIDINE 20 MG/2 ML INJ IV ONE (10:59)
[2022-01-22 11:16] LABS: Alanine Aminotransferase 15 units/L (7-56); BUN/Creatinine Ratio 21; Blood Urea Nitrogen 17 mg/dL (7-17); Calcium 10.1 mg/dL (8.4-10.2); Hemolysis Index 9
[2022-01-22 11:17] LABS: HCG Qualitative,Urine Negative (Negative)
[2022-01-22] MEDS ORDERED: fentaNYL 100 MCG/2 ML INJ IV ONE (11:43)
--- NOTE | 2022-01-22 11:46 | Emergency Department Report ---
HPI - General Chief Complaint: Nausea/Vomiting/Diarrhea Time Seen by Provider: 01/22/22 10:47 - HPI HPI: Room 20 The patient is a 31-year-old female present with a chief complaint of nausea vomiting. Patient states she smokes marijuana daily and has this problem in the past secondary to marijuana (cannabis hyperemesis syndrome). Patient states she has been vomiting intractably for the last 5 days. Patient complains of bilateral lower abdominal soreness from vomiting. Patient states she feels she is dehydrated and has not been able to urinate. Patient denies history of fever. ED Past Medical Hx - Past Medical History Additional medical history: Cannabis hyperemesis syndrome - Surgical History Hx Appendectomy: Yes Additional Surgical History: x 2, x 2 - Family History Family history: no significant - Social History Smoking Status: Current Some Day Smoker Substance Use Type: Marijuana - Medications Home Medications: Home Medications Medication Instructions Recorded Confirmed Last Taken Type Omeprazole 40 mg PO DAILY #30 capsule. 03/22/21 Unknown Rx Ondansetron [Zofran ODT TAB] 8 mg PO Q12HR PRN #20 tab.nia 03/22/21 Unknown Rx Ibuprofen [Motrin] 800 mg PO Q8HR PRN #30 tablet 03/25/21 Unknown Rx oxyCODONE /ACETAMINOPHEN [Percocet 1 tab PO Q6HR PRN #30 tablet 03/25/21 Unknown Rx 5/325] Ondansetron [Zofran ODT TAB] 8 mg PO Q8HR #30 tab.nia 01/22/22 Unknown Rx ED Review of Systems ROS: Stated complaint: EMESIS/UNABLE TO URINATE Other details as noted in HPI Constitutional: no symptoms reported Eyes: denies: eye pain ENT: denies: throat pain Respiratory: no symptoms reported Cardiovascular: denies: chest pain Endocrine: no symptoms reported Gastrointestinal: abdominal pain, nausea, vomiting Musculoskeletal: back pain Neurological: denies: headache Physical Exam - Physical Exam Vital Signs: Vital Signs 01/22/22 06:07 Temperature 98.1 F Pulse Rate 100 H Respiratory 16 Rate Blood Pressure 90/60 Blood Pressure 90/60 [Right] O2 Sat by Pulse 100 Oximetry Physical Exam: GENERAL: The patient is well-developed well-nourished female lying on stretcher not appearing to be in acute distress. [] HEENT: Normocephalic. Atraumatic. Extraocular motions are intact. Patient has moist mucous membranes. NECK: Supple. Trachea midline CHEST/LUNGS: Clear to auscultation. There is no respiratory distress noted. HEART/CARDIOVASCULAR: Regular. There is no tachycardia. There is no gallop rub or murmur. ABDOMEN: Abdomen is soft, with mild discomfort to palpation bilateral lower quadrants. No rebound or guard. Patient has normal bowel sounds. There is no abdominal distention. SKIN: There is no rash. There is no edema. There is no diaphoresis. NEURO: The patient is awake, alert, and oriented. The patient is cooperative. The patient has no focal neurologic deficits. The patient has normal speech. GCS 15 MUSCULOSKELETAL: There is bilateral CVA tenderness. There is no limitation range of motion. There is no evidence of acute injury. ED Course Vital Signs 01/22/22 06:07 Temperature 98.1 F Pulse Rate 100 H Respiratory 16 Rate Blood Pressure 90/60 Blood Pressure 90/60 [Right] O2 Sat by Pulse 100 Oximetry - Reevaluation(s) Reevaluation #1: 01/22/22 13:32 Patient states she feels improved ED Medical Decision Making - Lab Data Result diagrams: 01/22/22 10:30 01/22/22 10:30 Laboratory Tests 01/22/22 01/22/22 01/22/22 10:30 10:30 10:30 WBC 9.2 RBC 5.16 H Hgb 15.4 H Hct 46.5 H MCV 90 MCH 30 MCHC 33 RDW 13.5 Plt Count 319 Lymph % (Auto) 26.7 [place] % (Auto) 7.0 Eos % (Auto) 0.2 Baso % (Auto) 0.6 Lymph # (Auto) 2.5 [place] # (Auto) 0.6 Eos # (Auto) 0.0 Baso # (Auto) 0.1 Seg Neutrophils % 65.5 Seg Neutrophils # 6.0 Sodium 136 L Potassium 3.1 L Chloride 94.2 L Carbon Dioxide 23 Anion Gap 22 BUN 17 Creatinine 0.8 Estimated GFR > 60 BUN/Creatinine Ratio 21 Glucose 103 H Calcium 10.1 Total Bilirubin 1.10 AST 13 ALT 15 Alkaline Phosphatase 67 Total Protein 8.5 H Albumin 5.0 Albumin/Globulin Ratio 1.4 Lipase 21 HCG, Qual Negative Urine Color Urine Turbidity Urine pH Urine Protein Urine Glucose (UA) Urine Ketones Urine Blood Urine Nitrite Ur Reducing Substances Urine Bilirubin Urine Urobilinogen Ur Leukocyte Esterase Urine WBC (Auto) Urine RBC (Auto) Urine HCG, Qual 01/22/22 Unknown WBC RBC Hgb Hct MCV MCH MCHC RDW Plt Count Lymph % (Auto) [place] % (Auto) Eos % (Auto) Baso % (Auto) Lymph # (Auto) [place] # (Auto) Eos # (Auto) Baso # (Auto) Seg Neutrophils % Seg Neutrophils # Sodium Potassium Chloride Carbon Dioxide Anion Gap BUN Creatinine Estimated GFR BUN/Creatinine Ratio Glucose Calcium Total Bilirubin AST ALT Alkaline Phosphatase Total Protein Albumin Albumin/Globulin Ratio Lipase HCG, Qual Urine Color Bloody Urine Turbidity Turbid Urine pH Not Reportable Urine Protein Color interference Urine Glucose (UA) Color interference Urine Ketones Color interference Urine Blood Color interference Urine Nitrite Color interference Ur Reducing Substances Not Reportable Urine Bilirubin Color interference Urine Urobilinogen Not Reportable Ur Leukocyte Esterase Color interference Urine WBC (Auto) Not Reportable Urine RBC (Auto) > 182.0 Urine HCG, Qual Negative - Radiology Data Radiology results: report reviewed (2 view abdominal x-ray), image reviewed (2 view abdominal x-ray) interpreted by me: 2 view abdominal [id number] bowel gas pattern. [facility] [address] [place] [address] XRay Report Signed Patient: SUJATA FARRAR R#: [id number] : 1990 Acct:[id number] Age/Sex: 31 / F ADM Date: 01/22/22 Loc: ED Attending Dr: Ordering Physician: SAULO STEVENS MD Date of Service: 01/22/22 Procedure(s): XR abdomen 2V Accession Number(s): [id number] cc: SAULO STEVENS MD Fluoro Time In Minutes: ABDOMEN 2 VIEWS INDICATION / CLINICAL INFORMATION: Nausea vomiting. COMPARISON: None available. FINDINGS: TUBES / LINES: None. BOWEL GAS PATTERN: No significant abnormality. FREE AIR / EXTRALUMINAL GAS: None seen. ADDITIONAL FINDINGS: No significant additional findings. CHEST: Visualized chest shows no significant abnormality. IMPRESSION: 1. No significant abnormality. Signer Name: Kee Adan DO Signed: 01/22/2022 12:25 PM Workstation Name: [id number] Transcribed By: SINTIA Dictated By: KEE ADAN DO Electronically Authenticated By: KEE ADAN DO Signed Date/Time: 01/22/221224 DD/ 23 TD/TT: - Differential Diagnosis Cannabis hyperemesis syndrome, partial small bowel obstruction, UTI, pyelon Critical care attestation.: If time is entered above; I have spent that time in minutes in the direct care of this critically ill patient, excluding procedure time. ED Disposition Clinical Impression: Cannabis hyperemesis syndrome concurrent with and due to cannabis abuse, Hypokalemia Disposition: 01 HOME / SELF CARE / HOMELESS Is pt being admited?: No Does the pt Need Aspirin: No Condition: Stable Instructions: Cannabinoid Hyperemesis Syndrome Additional Instructions: Return to the emergency department should you develop worsening symptoms, inability to tolerate food or liquids, high fever or any other concerns Prescriptions: Ondansetron [Zofran ODT TAB] 8 mg PO Q8HR #30 tab.rapdis Referrals: [facility] [Provider Group] - 3-5 Days (You can follow-up at the [facility] to be established as a patient if you do not already have a primary physician.) ESTEPHANIA LAFLEUR MD [Staff Physician] - 3-5 Days (Dr. Lafleur is a primary physician. Please follow-up with him to be established as a patient) Time of Disposition: 13:33
--- NOTE | 2022-01-22 12:29 | XRay Report ---
ABDOMEN 2 VIEWS INDICATION / CLINICAL INFORMATION: Nausea vomiting. COMPARISON: None available. FINDINGS: TUBES / LINES: None. BOWEL GAS PATTERN: No significant abnormality. FREE AIR / EXTRALUMINAL GAS: None seen. ADDITIONAL FINDINGS: No significant additional findings. CHEST: Visualized chest shows no significant abnormality. IMPRESSION: 1. No significant abnormality. Signer Name: Kee Mccormick DO Signed: 01/22/2022 12:25 PM Workstation Name: [id number]
[2022-01-22 12:35] LABS: Bilirubin,Urine Color Interference (Negative); Color,Urine BLOODY (Yellow)
[2022-01-22 12:36] LABS: Blood,Urine Color Interference (Negative); Protein,Urine Color Interference mg/dL (Negative)
[2022-01-22 12:37] LABS: RBC,Urine > 182.0 /HPF (0.0-6.0)
[2022-01-22] MEDS ORDERED: POTASSIUM CHLORIDE ER 20 MEQ TAB PO ONE (13:31)
[2022-01-22 13:46] LABS: Ictotest,Urine Not Confirmed (Negative)
[2022-01-22 14:19] VITALS: BP 122/72
== END 2022-01-23 14:05 | disposition home or self-care (01) ==
LOC: ED 06:01
DX: F12.129 Cannabis abuse with intoxication, unspecified (principal); E87.6 Hypokalemia; F17.200 Nicotine dependence, unspecified, uncomplicated
CPT/HCPCS: 36415; 74019; 80053; 81001; 81025; 83690; 84703; 85025; 96361; 96374; 96375; 99284; J2405; J3010; J3490; J7030